=== PATIENT | male | born 1970 | race Caucasian/White ===

== ENCOUNTER 2021-01-21 15:15 | Outpatient (CLI) | payer BC, SELFPAY | END 2021-01-21 15:16 | disposition home or self-care (01) | LOC: ANHCOVIDVC 15:15 | PROVIDERS: PCP Family Medicine | DX: Z23 Encounter for immunization (principal) | CPT/HCPCS: 0001A; 91300 ==

== ENCOUNTER 2021-02-11 15:13 | Outpatient (CLI) | payer BC, SELFPAY | END 2021-02-11 15:14 | disposition home or self-care (01) | LOC: ANHCOVIDVC 15:13 | PROVIDERS: PCP Family Medicine | DX: Z23 Encounter for immunization (principal) | CPT/HCPCS: 0002A; 91300 ==

== ENCOUNTER 2022-09-16 00:36 | Day surgery (SDC) | payer BC, SELFPAY ==
[2022-09-12 10:13] VITALS: BMI 25.4
[2022-09-16 09:41] VITALS: BP 136/97; PULSE 67; RESP 18; TEMP 36.2; O2SAT 100; BMI 25.9
[2022-09-16] MEDS: LACTATED RINGERS 1,000 ML 150 ML IV CONT (09:50)
--- NOTE | 2022-09-16 10:07 | P.PNAN_ITS ---
Anes - Initial Pre Proc Eval Procedure: Operation Date: 09/16/22 10:30 Proposed Procedures p Screening Colonoscopy - Cornell Meneses MD Date/Time: 09/16/22 10:07 Surgeon: Cornell Meneses MD Pre Op Diagnosis: neoplasm screening Patient Data Age: 52 Gender: M Height: 1.93 m Weight: 96.7 kg Last Vital Signs Temp 97.2 F L 09/16/22 09:41 Pulse 67 09/16/22 09:41 Resp 18 09/16/22 09:41 BP 136/97 H 09/16/22 09:41 Pulse Ox 100 09/16/22 09:41 O2 Del Method Room Air 09/16/22 09:41 Allergies Allergy/AdvReac Type Severity Reaction Status Date / Time azithromycin Allergy Mild Rash Verified 09/12/22 10:38 Penicillins Allergy Mild Rash Verified 09/12/22 10:38 Home Medications Medication Instructions Recorded Confirmed Type sodium,potassium,mag sulfates 17.5 See Rx Instructions PO .COMPLEX 08/02/22 Rx gram-3.13 gram-1.6 gram oral soln #354 mL (Suprep Bowel Prep Kit) Patient hx anesthesia problems: none Family hx anesthesia problems: none Results Review: All pre-operative results and documents have been reviewed as part of the pre- operative evaluation. [facility] Past Medical History Medical History (Updated 09/12/22 @ 11:20 by Bijan Hazel MD) Retinal tear of right eye Social History Social History (Updated 09/12/22 @ 10:40 by Anay Frederick MA) Smoking status: Never smoker Alcohol intake: current Drinks per week: 14 Lack of Transportation: No Lack of Food: Never True Current Housing: I Have Housing Concerned About Future Housing: No Difficulty Paying Gas/Electric Bills: No Difficulty Paying for Meds: No Currently Unemployed: No Education: Master's Degree or Higher Difficulty w/ Childcare or Family Care: No Spiritual care concerns: No Anes - Eval Final PreProcedure Day of Procedure 09/16/22 10:07 Patient weight: normal Heart: regular rate and rhythm Lungs: clear to auscultation Airway: Mallampati scale class II Neurological: alert and oriented Last oral intake: >/= 8 hours ASA classification: I Emergent: no Anesthetic plan: proceed Anesthesia type and monitoring: general GIVS and standard monitoring Results Review: All pre-operative results and documents have been reviewed as part of the pre- operative evaluation. Informed Consent: The patient's anesthetic plan and its attendant risks and benefits were discussed with the patient/family/POA. Questions were solicited and answers provided to the satisfaction of the patient/family/POA.
--- NOTE | 2022-09-16 10:12 | P.HP_ITS ---
History of Present Illness History of Present Illness Consent: Risks, benefits, and alternatives have been discussed and questions answered. Patient agrees to proceed with procedure. Chief complaint: neoplasm screening Narrative: Lito Ochoa is a 52 year old male Presents for screening colonoscopy. Patient's current weight appetite and bowel movements are normal. Patient denies abdominal pain. He has had no bleeding. Family history is noncontribut ory. Review of Systems Review of Systems: Review of systems noncontributory. [facility] Past Medical History Medical History (Updated 09/12/22 @ 11:20 by Bijan Hazel MD) Retinal tear of right eye Social History Social History (Updated 09/12/22 @ 10:40 by Anay Frederick MA) Smoking status: Never smoker Alcohol intake: current Drinks per week: 14 Lack of Transportation: No Lack of Food: Never True Current Housing: I Have Housing Concerned About Future Housing: No Difficulty Paying Gas/Electric Bills: No Difficulty Paying for Meds: No Currently Unemployed: No Education: Master's Degree or Higher Difficulty w/ Childcare or Family Care: No Spiritual care concerns: No Meds Home Medications and Allergies Home Medications Medication Instructions Recorded Confirmed Type sodium,potassium,mag sulfates 17.5 See Rx Instructions PO .COMPLEX 08/02/22 Rx gram-3.13 gram-1.6 gram oral soln #354 mL (Suprep Bowel Prep Kit) Allergies Allergy/AdvReac Type Severity Reaction Status Date / Time azithromycin Allergy Mild Rash Verified 09/12/22 10:38 Penicillins Allergy Mild Rash Verified 09/12/22 10:38 Vital Signs Vital Signs - 24 hr 09/16/22 09:41 Temperature 97.2 F L Pulse Rate 67 Respiratory Rate 18 Blood Pressure 136/97 H Pulse Oximetry 100 Oxygen Delivery Room Air Exam Narrative: Physical exam reveals patient to be alert. Vital signs stable. HEENT exam is unremarkable. Patient is anicteric. Lungs are clear to auscultation and percussion. Heart is without murmur or extra sounds. Abdomen bowel sounds present soft nontender with no organomegaly. Digital external rectal exam is normal. Assessment and Plan Assessment and plan (1) Colon cancer screening: Code(s): Z12.11 - Encounter for screening for malignant neoplasm of colon Status: Acute Assessment and Plan: Patient presents today for screening colonoscopy. He appears to be at average risk for colon polyps. Further recommendations may be given after endoscopy.
[2022-09-16 10:46] VITALS: BP 117/82; PULSE 70; RESP 18; O2SAT 100
[2022-09-16 10:56] VITALS: BP 111/76; PULSE 72; RESP 18; O2SAT 100
[2022-09-16 11:06] VITALS: BP 133/98; PULSE 58; RESP 18; O2SAT 100
== END 2022-09-16 11:13 | disposition home or self-care (01) ==
PROVIDERS: PCP Family Medicine; Visit Provider Internal Medicine Gastroenterology
PROC: 0DJD8ZZ Inspection of Lower Intestinal Tract, Via Natural or Artificial Opening Endoscopic (ICD-10-PCS; CPT 45378; principal; 2022-09-16 10:30)
DX: Z12.11 Encounter for screening for malignant neoplasm of colon (principal); K64.8 Other hemorrhoids
CPT/HCPCS: 45378; J2704; J7120

== ENCOUNTER 2025-03-06 15:13 | Observation (INO) | payer BC, SELFPAY ==
[2025-03-06] VITALS (29 sets, daily range): BP systolic 134–181; BP diastolic 92–102; PULSE 57–74; RESP 13–21; O2SAT 96–100
--- NOTE | ~2025-03-06 | CT_ITS ---
CTA brain carotid Ordering provider: Minh Caballero MD History: . posterior circ stroke symptoms . Comparison: None. Technique: CT angiogram head and neck was performed following timed intravenous injection of contrast . Thin slice axial images and reformatted coronal images were obtained. Three dimensional reformatted images of the brain were also obtained using a [employer] workstation. Radiation reduction technique ut ilized.The dose-length product was 1251.14 mGy-cm. 100 ML Omnipaque 350 was given IV. FINDINGS: HEAD: --ANTERIOR AND MIDDLE CEREBRAL ARTERIES AND BRANCHES: Normal caliber and contour. --INTERNAL CAROTID ARTERIES: Mild atheromatous disease but no significant stenosis. No occlusion. --BASILAR ARTERY AND BRANCHES: Normal caliber and contour. No atheromatous disease. --POSTERIOR CEREBRAL ARTERIES: Normal caliber and contour --POSTERIOR COMMUNICATING ARTERIES: Not visualized which is probably related to congenital absence or small size. --ANEURYSM: None visualized. --BRAIN: Please refer to report of CT head performed the same day. --BONES AND SUPERFICIAL SOFT TISSUES: Please refer to report of CT head performed the same day. --PARANASAL SINUSES AND MASTOIDS: Please refer to report of CT head done the same day. NECK: --RIGHT CERVICAL CAROTID SYSTEM: Normal caliber and contour. Percent stenosis per NASCET criteria is 0%. No carotid dissection. Otherwise, no significant atheromatous disease or stenosis of the cervica l carotid system. --LEFT CERVICAL CAROTID SYSTEM: Normal caliber and contour. Percent stenosis per NASCET criteria is 0%. No carotid dissection. Otherwise, no significant atheromatous disease or stenosis of the cervical carotid system. --VERTEBRAL ARTERIES: Normal caliber and contour. --VISUALIZED AORTIC ARCH AND BRANCHING VESSELS: no significant stenosis. --SOFT TISSUES: Normal. --CERVICAL SPINE: Normal. IMPRESSION: 1. Normal CTA head and neck. Percent stenosis per NASCET criteria is 0%. Reviewed, dictated and finalized at location A.
--- NOTE | ~2025-03-06 | MR_ITS ---
EXAMINATION: MR brain/brain stem wo/w con DATE: 03/07/2025 11:21 INDICATION: Transient ischemic episode presenting with aphasia and loss of coordination TECHNIQUE: Magnetic resonance imaging (MRI) of the brain and brainstem was performed without and with 19 mL Multihance intravenous contrast. Sequences included sagittal and axial T1-weighted SE, axial d iffusion-weighted FS SE, axial 3D SWAN, axial T2-weighted FLAIR, and axial T2-weighted FSE. Postcontr ast axial and coronal T1-weighted SE was obtained. Apparent diffusion coefficient (ADC) maps were cre ated. COMPARISON: CT and CT angiogram dated 03/06/2025 FINDINGS: Restricted diffusion and increased to the surgical in the posterior aspect of the left lentiform nucl eus extending across the genu of the left internal capsule. No intracranial hemorrhage or abnormal in tracranial mass lesion. There are no intraparenchymal signal abnormalities seen on the other pulse s equences. The ventricles are symmetric and normal in size. There are no abnormal extra-axial fluid co llections. Flow voids are seen in the cerebral arteries on the T2-weighted sequences consistent with their expected patency. Visualized orbits and soft tissues are unremarkable. Mild mucoperiosteal thic kening the bilateral ethmoid sinuses. There are no areas of abnormal enhancement on the post contrast images. IMPRESSION: 1. Acute infarct in the left basal ganglia. Reviewed, dictated and finalized at location A.
--- NOTE | ~2025-03-06 | CT_ITS ---
EXAMINATION: CT brain wo con DATE: 03/06/2025 16:31 INDICATION: Confusion TECHNIQUE: Computed tomography (CT) of the head was performed without intravenous contrast. Sagittal and coronal reconstructions were performed. The mA was adjusted according to patient size. Iterative reconstruction technique was employed. The dose-length product was 756.67 mGy-cm. COMPARISON: None FINDINGS: No acute intracranial hemorrhage, acute infarction or abnormal extra axial fluid collection. Ventricl es are normal and symmetric. No mass/mass effect. The orbits, paranasal sinuses and mastoid air cells are normal. IMPRESSION: 1. Normal head CT. Reviewed, dictated and finalized at location A. IMPRESSION: 1. Normal head CT.
--- NOTE | 2025-03-06 15:49 | ED_ITS ---
HPI - General Adult General Chief complaint: Unspecified <Muna Lange PA-C - Last Filed: 03/07/25 10:58> Stated complaint: confusion, HTN since last night <Muna Lange PA-C - Last Filed: 03/07/25 10:58> Time Seen by Provider: 03/06/25 15:49 <Muna Lange PA-C - Last Filed: 03/07/25 10:58> Focused HPI: This is a 54 year old male that presents to the ER for confusion. Ongoing since last night. Reports he feels uncoordinated, like he is drunk. GENERAL: Well-appearing, well-nourished, and in no acute distress. HEAD: Normocephalic, atraumatic. CHEST: Clear to auscultation. ?No respiratory distress. HEART: Regular rate and rhythm.? NEURO: ?Alert and oriented x3. Patient screened in triage and initial orders placed.? ?Additional care and disposition to be based upon?diagnostic testing and treatment. <Muna Lange PA-C - Last Filed: 03/07/25 10:58> History of Present Illness HPI narrative: Agree with the HPI above last known well of 6:30 p.m. last night. Patient has no history of any medical conditions aside from vital detachment. Does not take any prescription medications. Patient was found to be hypertensive at home, confused, in coordinated, having word-finding difficulties, having difficulty typing and slurring of his speech. Size primary doctor today was referred to the emergency department for stroke evaluation. <Minh Caballero MD - Last Filed: 03/07/25 07:04> Related Data Home medications: Home Medications ?Medication ?Instructions ?Recorded ?Confirmed ?Last Taken ?Type No Home Medications 08/12/24 03/07/25 Unknown History <Muna Lange PA-C - Last Filed: 03/07/25 10:58> Allergies/adverse reactions: Allergies Allergy/AdvReac Type Severity Reaction Status Date / Time azithromycin Allergy Mild Rash Verified 03/07/25 02:53 Penicillins Allergy Mild Rash Verified 03/07/25 02:53 <Muna Lange PA-C - Last Filed: 03/07/25 10:58> Review of Systems 2 Review of Systems: As reviewed above in HPI <Minh Caballero MD - Last Filed: 03/07/25 07:04> [facility] Past Medical History Medical History: Medical History Retinal tear of right eye <Muna Lange PA-C - Last Filed: 03/07/25 10:58> Social History Social History: Social History Smoking status: Never smoker Alcohol intake: current Drinks per week: 10 Substance use: never Substance use type: does not use Do You Feel Safe in your Home?: Yes Lack of Transportation: No Lack of Food: Never True Current Housing: I Have Housing Concerned About Future Housing: No Difficulty Paying Gas/Electric Bills: No Difficulty Paying for Meds: No Currently Unemployed: No Education: Master's Degree or Higher Difficulty w/ Childcare or Family Care: No Spiritual care concerns: No <Muan Lange PA-C - Last Filed: 03/07/25 10:58> Exam 2 Narrative: GENERAL: [Well-appearing, well-nourished, and in no acute distress.] HEAD: [Normocephalic, atraumatic.] EYES: [PERRLA and EOMI.] ENT: Nares clear, no rhinorrhea or epistaxis. Mucous membranes moist. NECK: Supple. CHEST: [Clear to auscultation. No respiratory distress.] HEART: [Regular rate and rhythm]. No murmur heard. [Normal peripheral pulses.] ABDOMEN: [Soft, nondistended], [nontender], [No rigidity or guarding] EXTREMITIES: Normal range of motion. [No edema.] SKIN: Warm, dry, no rash. NEURO: Word-finding difficulties and subjective incoordination and feeling drunk but no for facial asymmetry, no strength asymmetry, no sensation asymmetry. Extinction is normal. Answering all questions appropriately. Full strength and sensation throughout both arms and legs. Ambulatory without any ataxic gait. PSYCH: [Normal mood and affect.] <Minh Caballero MD - Last Filed: 03/07/25 07:04> Course Vital Signs Vital signs: Vital Signs Pulse Rate 70 03/06/25 15:48 Respiratory Rate 20 03/06/25 15:48 Blood Pressure 161/92 H 03/06/25 15:48 Pulse Oximetry 100 03/06/25 15:48 Oxygen Delivery Room Air 03/06/25 15:48 Temperature 98.2 F 03/07/25 06:00 Pulse Rate 65 03/07/25 06:00 Respiratory Rate 20 03/07/25 06:00 Blood Pressure 119/75 03/07/25 06:00 Pulse Oximetry 100 03/07/25 06:00 Oxygen Delivery Room Air 03/07/25 08:00 <Muna Lange PA-C - Last Filed: 03/07/25 10:58> Vital Signs Pulse Rate 70 03/06/25 15:48 Respiratory Rate 20 03/06/25 15:48 Blood Pressure 161/92 H 03/06/25 15:48 Pulse Oximetry 100 03/06/25 15:48 Oxygen Delivery Room Air 03/06/25 15:48 Temperature 98.2 F 03/07/25 06:00 Pulse Rate 65 03/07/25 06:00 Respiratory Rate 20 03/07/25 06:00 Blood Pressure 119/75 03/07/25 06:00 Pulse Oximetry 100 03/07/25 06:00 Oxygen Delivery Room Air 03/07/25 08:00 <Minh Caballero MD - Last Filed: 03/07/25 07:04> Medical Decision Making MDM Narrative Medical decision making narrative: 54-year-old male presenting to the emergency department with signs and symptoms of posterior circulation impairment versus hemorrhagic stroke versus encephalitis versus pres syndrome. Patient was last known well at 6:30 p.m. yesterday when he suddenly had the sensation that he was drunk and intoxicated having word-finding difficulties, slurring of his speech, inability to express words and type words although he recognize the words were incorrect. He was confused all the sudden and they took his blood pressure at home and was elevated in the 180s region. He has no history of hypertension does not take any blood pressure medications. Patient is not any medications at this time. No history of strokes, CVA, neck injury or concussions. He went to his primary doctor today and was referred to the emergency department for evaluation of his neurological complaints. On my assessment patient states he feels much better at this time but not completely back to normal and still feels like he is drunk even though he is sitting still. His blood pressure did rise in triage to 181/98 but on my 2nd assessment was down to 145 systolic without any interventions. His neurological examination has no focal findings aside from his subjective incoordination although he has no ataxia or nystagmus. Negative Romberg test. Symptoms consistent with TIA versus posterior circulation impairment versus encephalitis. He is afebrile but is complaining of a headache neck pain at this time. CT head and CT angiography of the head neck was ordered. He is over 24 hours outside the window for any interventions such as thrombolytics or thrombectomy at the time of my initial assessment of the patient given delay in presenting to the ER from symptom onset. Cardiac workup was ordered. EKG chest x-ray CBC CMP lipase and troponin ordered. Patient will be admitted for MRI and neurological evaluation after completion of workup. CT head and CT angiography of the head neck showed no acute process. Spoke to Dr. Ledesma from Neurology at [facility] who gave me detailed recommendations on patient's plan of care and does not think patient needs transfer to a higher level of care center at this time and workup can be completed inpatient here at [facility]. Recommendations from neurology Dr. Ledesma are as follows: Full-dose aspirin 325 mg q.d, 80 mg atorvastatin q.d., A1c panel, lipid panel, echocardiogram, MRI with and without contrast of brain and brainstem. Permissive hypertension for 48 hours including only treating hypertension greater than 180 systolic/110 diastolic with agents such as IV labetalol p.r.n. if patient remains hypertensive upon discharge recommendations are for discharge with lisinopril daily. Outpatient follow-up after completion of stroke workup and MRI in patient with [facility] Neurology outpatient follow up. Clinic # [phone] Discussed the case with the hospitalist Dr. Albright who was agreeable to a telemetry monitored bed admission under the present circumstances. <Minh Caballero MD - Last Filed: 03/07/25 07:04> Medical Records Medical records reviewed: Yes I reviewed the external patient's medical records. <Minh Caballero MD - Last Filed: 03/07/25 07:04> Vital Signs Vital Signs: Vital Signs Pulse Rate 70 03/06/25 15:48 Respiratory Rate 20 03/06/25 15:48 Blood Pressure 161/92 H 03/06/25 15:48 Pulse Oximetry 100 03/06/25 15:48 Oxygen Delivery Room Air 03/06/25 15:48 Temperature 98.2 F 03/07/25 06:00 Pulse Rate 65 03/07/25 06:00 Respiratory Rate 20 03/07/25 06:00 Blood Pressure 119/75 03/07/25 06:00 Pulse Oximetry 100 03/07/25 06:00 Oxygen Delivery Room Air 03/07/25 08:00 <Muna Lange PA-C - Last Filed: 03/07/25 10:58> Vital Signs Pulse Rate 70 03/06/25 15:48 Respiratory Rate 20 03/06/25 15:48 Blood Pressure 161/92 H 03/06/25 15:48 Pulse Oximetry 100 03/06/25 15:48 Oxygen Delivery Room Air 03/06/25 15:48 Temperature 98.2 F 03/07/25 06:00 Pulse Rate 65 03/07/25 06:00 Respiratory Rate 20 03/07/25 06:00 Blood Pressure 119/75 03/07/25 06:00 Pulse Oximetry 100 03/07/25 06:00 Oxygen Delivery Room Air 03/07/25 08:00 <Minh Caballero MD - Last Filed: 03/07/25 07:04> Lab Data Lab results reviewed: Yes I reviewed the patient's lab results. <Minh Caballero MD - Last Filed: 03/07/25 07:04> Result diagrams: 03/06/25 17:10 03/06/25 17:11 <Muna Lange PA-C - Last Filed: 03/07/25 10:58> Labs: Lab Results 03/06/25 03/06/25 03/06/25 Range/Units 15:51 15:57 17:10 WBC 8.6 (4.5-10.0) K/mm3 RBC 5.02 (4.6-6.20) M/mm3 Hgb 15.1 (14.0-18.0) g/dL Hct 46.3 (42.0-52.0) % MCV 92.2 (80-100) fl MCH 30.1 (26-34) pg MCHC 32.6 (32-36) g/dl RDW 12.8 (11.5-14.5) % Plt Count 211 (150-375) k/mm3 MPV 11.1 H (7.4-10.4) fl Immature Gran % (Auto) 0.2 (0-0.5) % Neut % (Auto) 73.1 (45.5-73.1) % Lymph % (Auto) 19.4 (18.3-44.2) % [place] % (Auto) 6.7 (2.6-8.5) % Eos % (Auto) 0.3 (0-4.4) % Baso % (Auto) 0.3 (0.2-1.2) % Lymph # (Auto) 1.67 (0.9-3.2) K/mm3 [place] # (Auto) 0.6 (0.1-0.6) K/mm3 Eos # (Auto) 0.0 (0-0.3) K/mm3 Baso # (Auto) 0.0 (0.0-0.1) K/mm3 Abs Immat Gran (auto) 0.02 (0.00-0.031) K/mm3 Absolute Neuts (auto) 6.3 (1.3-6.7) K/mm3 Absolute Nucleated RBC 0.000 (0.0-0.012) K/mm3 Nucleated RBC % 0.0 (0.0-0.2) % PT (11.1-14.7) Seconds INR APTT (22.3-36.8) Seconds Sodium (137-145) mmol/L Potassium (3.4-5.0) mmol/L Chloride (98-107) mmol/L Carbon Dioxide (22-30) mmol/L Anion Gap (4-12) mmol/L BUN (9-20) mg/dL Creatinine (0.7-1.3) mg/dL Estim Creat Clear Calc ml/min Estimated GFR (59 - ) Glucose (65-110) mg/dL POC Capillary Glucose 88 (65-105) mg/dl Hemoglobin A1c 5.1 (<5.7) % Calcium (8.4-10.2) mg/dL Total Bilirubin (0.2-1.3) mg/dL AST (17-59) U/L ALT (6-50) U/L Alkaline Phosphatase (38-126) U/L Troponin I (0.000-0.034) ng/mL Total Protein (6.3-8.2) g/dL Albumin (3.5-5.1) g/dL Triglycerides (<150) mg/dL Cholesterol (0-200) mg/dL LDL Cholesterol Direct mg/dL HDL Direct mg/dL Urine Color Yellow (Yellow) Urine Appearance Clear (Clear) Urine pH 5.0 (5.0-9.0) Ur Specific [place] 1.024 (1.001-1.035) Urine Protein Trace (Negative) mg/dL Urine Glucose (UA) Negative (Negative) mg/dL Urine Ketones 3+ H (Negative) mg/dL Ur Blood (Man) Negative (Negative) Urine Nitrate Negative (Negative) Urine Bilirubin Negative (Negative) Urine Urobilinogen 1.0 (<2.0) mg/dL Leukocyte Esterase Rfl Negative (Negative) ERIKA/UL Urine RBC 0-2 (0-2) /hpf Urine WBC 0-5 (0-3) /hpf Ur Squamous Epith Cells None seen (Few) /hpf Urine Bacteria None seen /hpf Urine Casts 0-2 Urine Opiates Screen Negative (Negative) Urine Methadone Screen Negative (Negative) Ur Barbiturates Screen Negative (Negative) Ur Phencyclidine Scrn Negative (Negative) Ur Amphetamine Screen Negative (Negative) U Benzodiazepines Scrn Negative (Negative) Urine Cocaine Screen Negative (Negative) U Cannabinoids Screen Negative (Negative) Ethyl Alcohol (<10) mg/dL 03/06/25 Range/Units 17:11 WBC (4.5-10.0) K/mm3 RBC (4.6-6.20) M/mm3 Hgb (14.0-18.0) g/dL Hct (42.0-52.0) % MCV (80-100) fl MCH (26-34) pg MCHC (32-36) g/dl RDW (11.5-14.5) % Plt Count (150-375) k/mm3 MPV (7.4-10.4) fl Immature Gran % (Auto) (0-0.5) % Neut % (Auto) (45.5-73.1) % Lymph % (Auto) (18.3-44.2) % [place] % (Auto) (2.6-8.5) % Eos % (Auto) (0-4.4) % Baso % (Auto) (0.2-1.2) % Lymph # (Auto) (0.9-3.2) K/mm3 [place] # (Auto) (0.1-0.6) K/mm3 Eos # (Auto) (0-0.3) K/mm3 Baso # (Auto) (0.0-0.1) K/mm3 Abs Immat Gran (auto) (0.00-0.031) K/mm3 Absolute Neuts (auto) (1.3-6.7) K/mm3 Absolute Nucleated RBC (0.0-0.012) K/mm3 Nucleated RBC % (0.0-0.2) % PT 13.4 (11.1-14.7) Seconds INR 1.0 APTT 26.9 (22.3-36.8) Seconds Sodium 139 (137-145) mmol/L Potassium 3.9 (3.4-5.0) mmol/L Chloride 104 (98-107) mmol/L Carbon Dioxide 25 (22-30) mmol/L Anion Gap 10 (4-12) mmol/L BUN 15 (9-20) mg/dL Creatinine 0.94 (0.7-1.3) mg/dL Estim Creat Clear Calc 96 ml/min Estimated GFR > 60 (59 - ) Glucose 96 (65-110) mg/dL POC Capillary Glucose (65-105) mg/dl Hemoglobin A1c (<5.7) % Calcium 9.8 (8.4-10.2) mg/dL Total Bilirubin 0.9 (0.2-1.3) mg/dL AST 30 (17-59) U/L ALT 20 (6-50) U/L Alkaline Phosphatase 67 (38-126) U/L Troponin I < 0.012 (0.000-0.034) ng/mL Total Protein 8.0 (6.3-8.2) g/dL Albumin 4.8 (3.5-5.1) g/dL Triglycerides 55 (<150) mg/dL Cholesterol 241 H (0-200) mg/dL LDL Cholesterol Direct 115 mg/dL HDL Direct 95 mg/dL Urine Color (Yellow) Urine Appearance (Clear) Urine pH (5.0-9.0) Ur Specific [place] (1.001-1.035) Urine Protein (Negative) mg/dL Urine Glucose (UA) (Negative) mg/dL Urine Ketones (Negative) mg/dL Ur Blood (Man) (Negative) Urine Nitrate (Negative) Urine Bilirubin (Negative) Urine Urobilinogen (<2.0) mg/dL Leukocyte Esterase Rfl (Negative) ERIKA/UL Urine RBC (0-2) /hpf Urine WBC (0-3) /hpf Ur Squamous Epith Cells (Few) /hpf Urine Bacteria /hpf Urine Casts Urine Opiates Screen (Negative) Urine Methadone Screen (Negative) Ur Barbiturates Screen (Negative) Ur Phencyclidine Scrn (Negative) Ur Amphetamine Screen (Negative) U Benzodiazepines Scrn (Negative) Urine Cocaine Screen (Negative) U Cannabinoids Screen (Negative) Ethyl Alcohol < 10 (<10) mg/dL <Muna Lange PA-C - Last Filed: 03/07/25 10:58> Lab Results 03/06/25 03/06/25 03/06/25 Range/Units 15:51 15:57 17:10 WBC 8.6 (4.5-10.0) K/mm3 RBC 5.02 (4.6-6.20) M/mm3 Hgb 15.1 (14.0-18.0) g/dL Hct 46.3 (42.0-52.0) % MCV 92.2 (80-100) fl MCH 30.1 (26-34) pg MCHC 32.6 (32-36) g/dl RDW 12.8 (11.5-14.5) % Plt Count 211 (150-375) k/mm3 MPV 11.1 H (7.4-10.4) fl Immature Gran % (Auto) 0.2 (0-0.5) % Neut % (Auto) 73.1 (45.5-73.1) % Lymph % (Auto) 19.4 (18.3-44.2) % [place] % (Auto) 6.7 (2.6-8.5) % Eos % (Auto) 0.3 (0-4.4) % Baso % (Auto) 0.3 (0.2-1.2) % Lymph # (Auto) 1.67 (0.9-3.2) K/mm3 [place] # (Auto) 0.6 (0.1-0.6) K/mm3 Eos # (Auto) 0.0 (0-0.3) K/mm3 Baso # (Auto) 0.0 (0.0-0.1) K/mm3 Abs Immat Gran (auto) 0.02 (0.00-0.031) K/mm3 Absolute Neuts (auto) 6.3 (1.3-6.7) K/mm3 Absolute Nucleated RBC 0.000 (0.0-0.012) K/mm3 Nucleated RBC % 0.0 (0.0-0.2) % PT (11.1-14.7) Seconds INR APTT (22.3-36.8) Seconds Sodium (137-145) mmol/L Potassium (3.4-5.0) mmol/L Chloride (98-107) mmol/L Carbon Dioxide (22-30) mmol/L Anion Gap (4-12) mmol/L BUN (9-20) mg/dL Creatinine (0.7-1.3) mg/dL Estim Creat Clear Calc ml/min Estimated GFR (59 - ) Glucose (65-110) mg/dL POC Capillary Glucose 88 (65-105) mg/dl Hemoglobin A1c 5.1 (<5.7) % Calcium (8.4-10.2) mg/dL Total Bilirubin (0.2-1.3) mg/dL AST (17-59) U/L ALT (6-50) U/L Alkaline Phosphatase (38-126) U/L Troponin I (0.000-0.034) ng/mL Total Protein (6.3-8.2) g/dL Albumin (3.5-5.1) g/dL Triglycerides (<150) mg/dL Cholesterol (0-200) mg/dL LDL Cholesterol Direct mg/dL HDL Direct mg/dL Urine Color Yellow (Yellow) Urine Appearance Clear (Clear) Urine pH 5.0 (5.0-9.0) Ur Specific [place] 1.024 (1.001-1.035) Urine Protein Trace (Negative) mg/dL Urine Glucose (UA) Negative (Negative) mg/dL Urine Ketones 3+ H (Negative) mg/dL Ur Blood (Man) Negative (Negative) Urine Nitrate Negative (Negative) Urine Bilirubin Negative (Negative) Urine Urobilinogen 1.0 (<2.0) mg/dL Leukocyte Esterase Rfl Negative (Negative) ERIKA/UL Urine RBC 0-2 (0-2) /hpf Urine WBC 0-5 (0-3) /hpf Ur Squamous Epith Cells None seen (Few) /hpf Urine Bacteria None seen /hpf Urine Casts 0-2 Urine Opiates Screen Negative (Negative) Urine Methadone Screen Negative (Negative) Ur Barbiturates Screen Negative (Negative) Ur Phencyclidine Scrn Negative (Negative) Ur Amphetamine Screen Negative (Negative) U Benzodiazepines Scrn Negative (Negative) Urine Cocaine Screen Negative (Negative) U Cannabinoids Screen Negative (Negative) Ethyl Alcohol (<10) mg/dL 03/06/25 Range/Units 17:11 WBC (4.5-10.0) K/mm3 RBC (4.6-6.20) M/mm3 Hgb (14.0-18.0) g/dL Hct (42.0-52.0) % MCV (80-100) fl MCH (26-34) pg MCHC (32-36) g/dl RDW (11.5-14.5) % Plt Count (150-375) k/mm3 MPV (7.4-10.4) fl Immature Gran % (Auto) (0-0.5) % Neut % (Auto) (45.5-73.1) % Lymph % (Auto) (18.3-44.2) % [place] % (Auto) (2.6-8.5) % Eos % (Auto) (0-4.4) % Baso % (Auto) (0.2-1.2) % Lymph # (Auto) (0.9-3.2) K/mm3 [place] # (Auto) (0.1-0.6) K/mm3 Eos # (Auto) (0-0.3) K/mm3 Baso # (Auto) (0.0-0.1) K/mm3 Abs Immat Gran (auto) (0.00-0.031) K/mm3 Absolute Neuts (auto) (1.3-6.7) K/mm3 Absolute Nucleated RBC (0.0-0.012) K/mm3 Nucleated RBC % (0.0-0.2) % PT 13.4 (11.1-14.7) Seconds INR 1.0 APTT 26.9 (22.3-36.8) Seconds Sodium 139 (137-145) mmol/L Potassium 3.9 (3.4-5.0) mmol/L Chloride 104 (98-107) mmol/L Carbon Dioxide 25 (22-30) mmol/L Anion Gap 10 (4-12) mmol/L BUN 15 (9-20) mg/dL Creatinine 0.94 (0.7-1.3) mg/dL Estim Creat Clear Calc 96 ml/min Estimated GFR > 60 (59 - ) Glucose 96 (65-110) mg/dL POC Capillary Glucose (65-105) mg/dl Hemoglobin A1c (<5.7) % Calcium 9.8 (8.4-10.2) mg/dL Total Bilirubin 0.9 (0.2-1.3) mg/dL AST 30 (17-59) U/L ALT 20 (6-50) U/L Alkaline Phosphatase 67 (38-126) U/L Troponin I < 0.012 (0.000-0.034) ng/mL Total Protein 8.0 (6.3-8.2) g/dL Albumin 4.8 (3.5-5.1) g/dL Triglycerides 55 (<150) mg/dL Cholesterol 241 H (0-200) mg/dL LDL Cholesterol Direct 115 mg/dL HDL Direct 95 mg/dL Urine Color (Yellow) Urine Appearance (Clear) Urine pH (5.0-9.0) Ur Specific [place] (1.001-1.035) Urine Protein (Negative) mg/dL Urine Glucose (UA) (Negative) mg/dL Urine Ketones (Negative) mg/dL Ur Blood (Man) (Negative) Urine Nitrate (Negative) Urine Bilirubin (Negative) Urine Urobilinogen (<2.0) mg/dL Leukocyte Esterase Rfl (Negative) ERIKA/UL Urine RBC (0-2) /hpf Urine WBC (0-3) /hpf Ur Squamous Epith Cells (Few) /hpf Urine Bacteria /hpf Urine Casts Urine Opiates Screen (Negative) Urine Methadone Screen (Negative) Ur Barbiturates Screen (Negative) Ur Phencyclidine Scrn (Negative) Ur Amphetamine Screen (Negative) U Benzodiazepines Scrn (Negative) Urine Cocaine Screen (Negative) U Cannabinoids Screen (Negative) Ethyl Alcohol < 10 (<10) mg/dL <Minh Caballero MD - Last Filed: 03/07/25 07:04> Imaging Data Attestation: I personally reviewed and interpreted this imaging study as follows: < Minh Caballero MD - Last Filed: 03/07/25 07:04> My impression: Impressions Head CT 03/06/25 16:41 IMPRESSION: 1. Normal head CT. Head/Neck CTA 03/06/25 21:43 IMPRESSION: 1. Normal CTA head and neck. Percent stenosis per NASCET criteria is 0%. <Minh Caballero MD - Last Filed: 03/07/25 07:04> Critical Care Time Critical Care Time Critical Care Time: Yes <Minh Caballero MD - Last Filed: 03/07/25 07:04> Total Critical Care Time: 35 <Minh Caballero MD - Last Filed: 03/07/25 07:04> Discharge Plan Discharge Clinical Impression: TIA (transient ischemic attack), Acute posterior circulation transient ischemic attack <Muna Lange PA-C - Last Filed: 03/07/25 10:58> Patient Disposition: Still a Patient <Muna Lange PA-C - Last Filed: 03/07/25 10:58> Condition: Stable <Muna Lange PA-C - Last Filed: 03/07/25 10:58>
--- NOTE | 2025-03-06 15:49 | ECG_ITS ---
Test Date: 2025-03-06 17:14:44 Measurements Intervals [place] Rate: 66 P: 85 IN: 199 QRS: 0 QRSD: 103 T: 30 QT: 370 QTc: 390 Interpretive Statements SINUS RHYTHM No previous ECG available for comparison Electronically Signed On 03-07-2025 11:09:47 CDT by Golden Colon M.D.
[2025-03-06 15:53] LABS: Glucose Point of Care 88 mg/dl (65-105)
[2025-03-06 16:11] LABS: Add Urine Microscopic? YES; Appearance Urine Clear (Clear); Bacteria Urine None Seen /hpf; Bilirubin Urine Negative (Negative); Blood Urine Negative (Negative); Color Urine Yellow (Yellow); Glucose Urine UA Negative (Negative); Ketones Urine 3+ mg/dL (Negative); Leukocyte Esterase Ur Negative LEU/UL (Negative); Nitrate Urine Negative (Negative); Non Pathogenic Casts 0-2; Protein Urine Trace mg/dL (Negative); RBC Urine 0-2 /hpf (0-2); Specific Grav Ur 1.024 (1.001-1.035); Squamous Epithelial Cell Urine None Seen /hpf (Few); WBC Urine 0-5 /hpf (0-3)
[2025-03-06 17:25] LABS: Basophils Percent Auto 0.3 % (0.2-1.2); Eosinophils Percent Auto 0.3 % (0-4.4); Hematocrit 46.3 % (42.0-52.0); Hemoglobin 15.1 g/dL (14.0-18.0); Immature Granulocyte Absolute 0.02 K/mm3 (0.00-0.031); Immature Granulocyte Percent A 0.2 % (0-0.5); Lymphocytes Absolute Auto 1.67 K/mm3 (0.9-3.2); Lymphocytes Percent Auto 19.4 % (18.3-44.2); Mean Corpuscular HGB Conc 32.6 g/dl (32-36); Mean Corpuscular Hemoglobin 30.1 pg (26-34); Mean Corpuscular Volume 92.2 fl (80-100); Mean Platelet Volume 11.1 fl (7.4-10.4); Monocytes Absolute Auto 0.6 K/mm3 (0.1-0.6); Monocytes Percent Auto 6.7 % (2.6-8.5); Neutrophils Absolute Auto 6.3 K/mm3 (1.3-6.7); Neutrophils Percent Auto 73.1 % (45.5-73.1); Platelet Count Result 211 k/mm3 (150-375); Red Blood Count 5.02 M/mm3 (4.6-6.20); Red Cell Distribution Width 12.8 % (11.5-14.5); White Blood Count 8.6 K/mm3 (4.5-10.0)
[2025-03-06 17:31] LABS: Alanine Aminotransferase 20 U/L (6-50); Albumin Level 4.8 g/dL (3.5-5.1); Alkaline Phosphatase 67 U/L (38-126); Anion Gap 10 mmol/L (4-12); Aspartate Amino Transferase 30 U/L (17-59); Bilirubin,Total 0.9 mg/dL (0.2-1.3); Blood Urea Nitrogen 15 mg/dL (9-20); Calcium 9.8 mg/dL (8.4-10.2); Carbon Dioxide 25 mmol/L (22-30); Chloride 104 mmol/L (98-107); Estimated CRCL calculation 96 ml/min; Estimated Glomerular Filt Rate > 60; Glucose 96 mg/dL (65-110); Potassium 3.9 mmol/L (3.4-5.0); Sodium 139 mmol/L (137-145)
[2025-03-06 17:36] LABS: Ethanol < 10 mg/dL (<10); Prothrombin Time 13.4 Seconds (11.1-14.7)
[2025-03-06 17:37] LABS: Partial Thromboplastin Time 26.9 Seconds (22.3-36.8)
[2025-03-06 17:56] LABS: Amphetamine Screen Urine Negative (Negative); Barbiturate Screen Urine Negative (Negative); Benzodiazepines Screen Urine Negative (Negative); Cannabinoid Screen Urine Negative (Negative); Cocaine Screen Urine Negative (Negative); Methadone Screen Urine Negative (Negative); Opiate Screen Urine Negative (Negative); Phencyclidine Screen Urine Negative (Negative)
[2025-03-06] MEDS: ASPIRIN 325 MG TABLET PO (21:10)
--- NOTE | 2025-03-06 21:46 | ECG_ITS ---
Test Date: 2025-03-06 21:49:09 Measurements Intervals [place] Rate: 64 P: 59 PA: 212 QRS: 0 QRSD: 110 T: 18 QT: 387 QTc: 402 Interpretive Statements SINUS RHYTHM WITH FIRST DEGREE AV BLOCK Compared to ECG 03/06/2025 17:14:44 NO SIGNIFICANT CHANGES Electronically Signed On 03-07-2025 15:04:09 CDT by Golden Colon M.D.
[2025-03-06 22:01] LABS: Troponin I < 0.012 ng/mL (0.000-0.034)
[2025-03-07] VITALS (13 sets, daily range): BP systolic 119–152; BP diastolic 75–102; PULSE 57–96; RESP 13–20; TEMP 36–36.8; O2SAT 97–100; BMI 25.7
[2025-03-07 00:51] LABS: Hemoglobin A1C 5.1 % (<5.7)
[2025-03-07 00:52] LABS: Cholesterol 241 mg/dL (0-200); HDL Direct 95 mg/dL; Triglycerides 55 mg/dL (<150)
[2025-03-07 01:03] LABS: LDL Cholesterol Direct 115 mg/dL
--- NOTE | 2025-03-07 02:55 | PC.NURSE ---
PATIENT ARRIVED ON 3 MEDSURG AT 0248
--- NOTE | 2025-03-07 04:13 | PM.IMHP ---
H&P: HPI History of Present Illness Date/Time: 03/07/25 04:13 Chief Complaint: Confusion Narrative: 54-year-old male presents to [facility] ER on 03/06/2025 with complaint of confusion. He for sought evaluation with his PCP Dr. Hazel as he felt out of sorts. After dinner on 03/05/2025 felt as if he was drawn, could not type, had slurred speech. Was found to have high blood pressure. Sent to [place] ER for further evaluation. Laboratory workup largely unremarkable. Pending lipid panel. Negative UA. Negative urine drug screen. CT head and CTA head and neck negative. On repeat evaluation in the ER the patient reported no symptoms. His participation in the exam was limited as he only wanted to sleep. However reported he was feeling much better. As detailed and ER physician's note neurology Dr. Ledesma at [facility] decline for patient to be transferred however gave detailed recommendations on plan of care. Review of Systems Constitutional: Constitutional: Reports as per [facility] Past Medical History Medical History Retinal tear of right eye Social History Social History Smoking status: Never smoker Alcohol intake: current Drinks per week: 10 Substance use: never Substance use type: does not use Do You Feel Safe in your Home?: Yes Lack of Transportation: No Lack of Food: Never True Current Housing: I Have Housing Concerned About Future Housing: No Difficulty Paying Gas/Electric Bills: No Difficulty Paying for Meds: No Currently Unemployed: No Education: Master's Degree or Higher Difficulty w/ Childcare or Family Care: No Spiritual care concerns: No Meds Home Medications and Allergies Home Medications ?Medication ?Instructions ?Recorded ?Confirmed ?Type No Home Medications 08/12/24 03/07/25 History Allergies Allergy/AdvReac Type Severity Reaction Status Date / Time azithromycin Allergy Mild Rash Verified 03/07/25 02:53 Penicillins Allergy Mild Rash Verified 03/07/25 02:53 Vital Signs Vital Signs - 24 hr 03/06/25 15:48 03/06/25 19:47 03/06/25 19:57 Temperature Pulse Rate 70 67 69 Respiratory Rate 20 16 17 Blood Pressure 161/92 H 181/98 H Pulse Oximetry 100 100 100 Oxygen Delivery Room Air 03/06/25 20:00 03/06/25 20:01 03/06/25 20:15 Temperature Pulse Rate 70 65 66 Respiratory Rate 21 H 17 16 Blood Pressure 172/100 H Pulse Oximetry 100 100 98 Oxygen Delivery 03/06/25 20:16 03/06/25 20:30 03/06/25 20:31 Temperature Pulse Rate 63 68 65 Respiratory Rate 15 19 15 Blood Pressure 145/99 H 159/98 H Pulse Oximetry 99 100 98 Oxygen Delivery 03/06/25 20:45 03/06/25 20:46 03/06/25 21:00 Temperature Pulse Rate 65 63 67 Respiratory Rate 16 15 16 Blood Pressure 153/94 H Pulse Oximetry 98 98 98 Oxygen Delivery 03/06/25 21:01 03/06/25 21:15 03/06/25 21:32 Temperature Pulse Rate 66 63 Respiratory Rate 18 16 Blood Pressure 134/101 H Pulse Oximetry 98 100 Oxygen Delivery 03/06/25 21:34 03/06/25 21:45 03/06/25 22:00 Temperature Pulse Rate 64 69 71 Respiratory Rate 14 17 15 Blood Pressure 166/95 H Pulse Oximetry 100 100 96 Oxygen Delivery 03/06/25 22:01 03/06/25 22:15 03/06/25 22:16 Temperature Pulse Rate 72 67 74 Respiratory Rate 17 17 19 Blood Pressure 147/96 H 147/92 H Pulse Oximetry 97 96 97 Oxygen Delivery 03/06/25 22:30 03/06/25 22:31 03/06/25 22:45 Temperature Pulse Rate 59 L 57 L 60 Respiratory Rate 16 14 13 Blood Pressure 144/97 H Pulse Oximetry 96 96 97 Oxygen Delivery 03/06/25 23:00 03/06/25 23:01 03/06/25 23:15 Temperature Pulse Rate 64 68 71 Respiratory Rate 16 17 17 Blood Pressure 157/102 H Pulse Oximetry 100 100 100 Oxygen Delivery 03/06/25 23:30 03/06/25 23:45 03/07/25 00:00 Temperature Pulse Rate 64 73 67 Respiratory Rate 17 14 15 Blood Pressure Pulse Oximetry 100 100 97 Oxygen Delivery 03/07/25 00:15 03/07/25 00:30 03/07/25 00:45 Temperature Pulse Rate 59 L 57 L 58 L Respiratory Rate 13 14 16 Blood Pressure Pulse Oximetry 97 97 99 Oxygen Delivery 03/07/25 01:00 03/07/25 01:15 03/07/25 01:30 Temperature Pulse Rate 62 60 62 Respiratory Rate 18 18 15 Blood Pressure Pulse Oximetry 99 100 98 Oxygen Delivery 03/07/25 02:58 Temperature 98.1 F Pulse Rate 60 Respiratory Rate 18 Blood Pressure 147/102 H Pulse Oximetry 100 Oxygen Delivery Exam Const: General: comfortable and no acute distress HENMT: Mouth: Yes moist mucous membranes Eyes: Pupils: Equal, round and reactive pupils present Neck: Neck: supple Resp: Effort & Inspection: normal respiratory effort Auscultation: clear to auscultation bilaterally Cardio: Rate: regular rate Rhythm: regular rhythm GI: GI Palp: Yes Soft to palpation and No Tenderness to palpation present (GI) : General: Yes bladder normal to palpation Neuro: General: deep tendon reflexes 2+ bilaterally Speech: normal speech Motor exam (neuro): 5/5 motor strength present throughout Sensory Exam: normal sensation Extrem: General: no edema H&P: Results Labs Labs: Short CBC 03/06/25 Range/Units 17:10 WBC 8.6 (4.5-10.0) K/mm3 Hgb 15.1 (14.0-18.0) g/dL Hct 46.3 (42.0-52.0) % Plt Count 211 (150-375) k/mm3 BMP 03/06/25 17:11 Sodium 139 Potassium 3.9 Chloride 104 Carbon Dioxide 25 BUN 15 Creatinine 0.94 Glucose 96 Calcium 9.8 Cardiac Enzymes 03/06/25 Range/Units 17:11 Troponin I < 0.012 (0.000-0.034) ng/mL Liver Function 03/06/25 Range/Units 17:11 Total Bilirubin 0.9 (0.2-1.3) mg/dL AST 30 (17-59) U/L ALT 20 (6-50) U/L Alkaline Phosphatase 67 (38-126) U/L Albumin 4.8 (3.5-5.1) g/dL Urine 03/06/25 Range/Units 15:57 Urine Color Yellow (Yellow) Urine Appearance Clear (Clear) Urine pH 5.0 (5.0-9.0) Ur Specific [place] 1.024 (1.001-1.035) Urine Protein Trace (Negative) mg/dL Urine Glucose (UA) Negative (Negative) mg/dL Assessment and Plan Assessment and plan (1) TIA (transient ischemic attack): Code(s): G45.9 - Transient cerebral ischemic attack, unspecified Status: Acute Plan Continue full-dose aspirin 325 mg p.o. q.day. 80 mg atorvastatin q.day. pending A1c, lipid panel, echocardiogram, MRI with without contrast of brain and brainstem to assess for posterior circulation abnormalities. Permissive hypertension for 48 hours. Time of 1st event was around the evening of 03/05/2025. Outpatient follow-up after completion of stroke workup and MRI in patient with [facility] Neurology outpatient follow up. Clinic # [phone] Full code. SCDs. Hospitalist MIPS Advance Care Plan I have confirmed that the patient's Advanced Care Plan is present, code status is documented, or surrogate decision maker is listed in patient medical record.: Yes Medication Reconciliation I have utilized all available resources to obtain, update and review the patients current medications (includes all prescriptions, OTC, herbals, cannabis, and nutritional supplements).: Yes
--- NOTE | 2025-03-07 06:00 | ECHO_ITS ---
Patient Info Name: Lito Ochoa Age: 54 years : 1970 Gender: Male Ht: 76 in Wt: 211 lbs BSA: 2.27 m2 HR: 73 bpm BP: 119 / 75 mmHg Heart Rhythm: Sinus Rhythm Technical Quality: Good Exam Date: 03/07/2025 3:26 PM Patient Status: I Admit Date: 03/07/2025 Exam Type: CA echo doppler w bubble study Complete two-dimensional, color flow and Doppler transthoracic echocardiogram is performed with agitated saline. Staff Referring Physician: Alberto Rivera Boat Painter: Alanis Pino Attending Provider: Laurel Albright Contrast/Agitated Saline Contrast/Ag. Saline: Agitated Saline Amount: 20.00 ml Existing IV Access: Yes IV Access Condition: patent with no signs of infiltration Summary 1. Left ventricular chamber dimension is normal. 2. Left ventricular systolic function is normal, estimated at 60-65. 3. The left ventricular diastolic function is grade II diastolic dysfunction. 4. E/e' 6 is not elevated. 5. No pulmonary hypertension, estimated pulmonary arterial systolic pressure is 19 mmHg. 6. There is trace pulmonic regurgitation. Left Ventricle E/e' 6 is not elevated. Left ventricular chamber dimension is normal. Left ventricular systolic function is normal, estimated at 60-65. The left ventricular diastolic function is grade II diastolic dysfunction. Right Ventricle Right ventricular chamber dimension is normal. Right ventricular systolic function is normal and with normal TAPSE 2.0 cm. Left Atria Left atrial chamber dimension is normal. Right Atria Right atrial chamber dimension is normal. Atrial Septum Intact interatrial septum visualized by 2D and agitated saline imaging. Agitated saline injection with and without valsalva maneuver opacified right side cardiac chambers without shunt to left side cardiac chambers. Aortic Valve The aortic valve is trileaflet. There is no aortic valve stenosis. There is no aortic valve regurgitation. Pulmonic Valve There is trace pulmonic regurgitation. Mitral Valve There is no mitral valve stenosis. There is no mitral valve regurgitation. Tricuspid Valve There is no tricuspid valve regurgitation. No pulmonary hypertension, estimated pulmonary arterial systolic pressure is 19 mmHg. Pericardium/Pleural There is no pericardial effusion. Inferior Vena Cava Normal inferior vena cava with >50% collapse upon inspiration consistent with normal right atrial pressure, 5 mmHg. Aorta The aortic root size at the sinus of Valsalva is not well visualized. Left Ventricular Outflow Tract Name Value Normal LVOT 2D LVOT Diameter 2.0 cm LVOT Doppler LVOT Peak Velocity 106 cm/s LVOT Peak Gradient 4 mmHg LVOT Mean Gradient 2 mmHg LVOT VTI 16 cm LVOT VTI/AV VTI Ratio 1.0 LVOT Stroke Volume 54 ml LVOT CO 3.5 l/min LVOT CI 1.5 l/min/m2 Pulmonic Valve Name Value Normal RVOT Doppler RVOT Peak Velocity 78 cm/s RVOT Peak Gradient 2 mmHg PV Doppler PV Peak Velocity 124 cm/s PV Peak Gradient 6 mmHg Mitral Valve Name Value Normal MV Diastolic Function MV E Peak Velocity 59 cm/s MV A Peak Velocity 59 cm/s MV E/A 1.0 MV Decel Time (PW) 214 ms MV Annular TDI MV E/e' (Septal) 7.8 MV E/e' (Lateral) 5.7 MV E/e' (Average) 6.8 Tricuspid Valve Name Value Normal TV Regurgitation Doppler TR Peak Velocity 188 cm/s TR Peak Gradient 14 mmHg Estimated PAP/RSVP RA Pressure 5 mmHg <=5 PA Systolic Pressure 19 mmHg <36 RV Systolic Pressure 19 mmHg <36 TV Annular TDI TV Lateral Cass s' Velocity 10.6 cm/s >=9.5 Aorta Name Value Normal Ascending Aorta Ao Root Diameter (MM) 3.6 cm Ao Root Diam Index (MM) 1.6 cm/m2 Aortic Valve Name Value Normal AV Doppler AV Peak Velocity 106 cm/s AV Peak Gradient 4 mmHg AV Mean Gradient 2 mmHg AV VTI 16 cm AV Area (Cont Eq VTI) 3.3 cm2 >=3.0 AV Area (Cont Eq Silvestre) 3.3 cm2 AV DI (Silvestre) 1.00 AV Regurgitation 2D LVOT Area 3.3 cm2 Ventricles Name Value Normal LV Dimensions 2D/MM IVS Diastolic Thickness (2D) 1.2 cm 0.6-1.0 LVID Diastole (2D) 4.3 cm 4.2-5.8 LVIW Diastolic Thickness (2D) 1.2 cm 0.6-1.0 LVID Systole (2D) 2.8 cm 2.5-4.0 LVOT Diameter 2.0 cm LV Mass (2D Cubed) 186.42 g 88.00-224.00 LV Mass Index (2D Cubed) 82 g/m2 49-115 Relative Wall Thickness (2D) 0.55 <=0.42 LV Fractional Shortening/Ejection Fraction 2D/MM LV Fractional Shortening (2D) 35 % 25-43 LV EF (2D Teichholz) 65 % LV Diastolic Volume (4C MOD) 92 ml LV EF (4C MOD) 63 % LV Diastolic Volume (2C MOD) 90 ml LV EF (2C MOD) 60 % LV Diastolic Volume (BP MOD) 92 ml 62-150 LV Diastolic Volume Index (BP MOD) 41 ml/m2 34-74 LV Systolic Volume (BP MOD) 36 ml 21-61 LV Systolic Volume Index (BP MOD) 16 ml/m2 11-31 LV EF (BP MOD) 61 % 52-72 LV Diastolic Length (4C) 8.6 cm LV Systolic Length (4C) 6.9 cm LV Stroke Volume (4C MOD) 58 ml Atria Name Value Normal LA Dimensions LA Dimension (MM) 3.9 cm 3.0-4.0 LA Volume (4C A-L) 47 ml LA Volume (BP A-L) 52 ml RA Dimensions RA Area (4C) 11.8 cm2 <=18.0 Report Signatures
[2025-03-07] MEDS: ATORVASTATIN 40 MG TABLET 80 MG PO (07:56)
[2025-03-07] MEDS: ASPIRIN 325 MG TABLET PO (07:57)
--- NOTE | 2025-03-07 08:13 | PM.IMPN ---
Progress Note: A&P Assessment and Plan (1) TIA (transient ischemic attack): Code(s): G45.9 - Transient cerebral ischemic attack, unspecified Status: Acute Assessment and Plan: After dinner on 03/05/2025 felt as if he was drawn, could not type, had slurred speech. Was found to have high blood pressure. Sent to [place] ER for further evaluation. Laboratory workup largely unremarkable. Continue full-dose aspirin 325 mg p.o. q.day. 80 mg atorvastatin q.day. A1C 5.1% on 03/06/2025 Lipid panel: Triglycerides 55, cholesterol 241, LDL 115, HDL 95 Echo pending Brain MRI: Acute infarct in left basal ganglia Outpt f/u w/ [facility] neurology, Clinic # [phone] Plan Full code. SCDs. Subjective Date/time seen: 03/07/25 08:13 Interval history: 54-year-old male presents to [facility] ER on 03/06/2025 with complaint of confusion. He for sought evaluation with his PCP Dr. Hazel as he felt out of sorts. 03/07/2025 Patient is sitting comfortably in bed at time of examination. Brain MRI shows acute infarct in the left basal ganglia. Echocardiogram still pending at this time, however likely will not be obtained before tomorrow. Patient given follow-up instructions with the [facility] Neurology office, likely can DC tomorrow after echo. No other complaints concerns at this time, neuro exam benign. Review of Systems Review of Systems: All systems reviewed & are unremarkable except as noted in HPI and below Constitutional: Constitutional: Reports as per HPI Exam Const: General: comfortable and no acute distress HENMT: Mouth: Yes moist mucous membranes Eyes: Pupils: Equal, round and reactive pupils present Neck: Neck: supple Resp: Effort & Inspection: normal respiratory effort Auscultation: clear to auscultation bilaterally Cardio: Rate: regular rate Rhythm: regular rhythm : General: Yes bladder normal to palpation Neuro: General: deep tendon reflexes 2+ bilaterally Cranial nerves: Yes Equal, round and reactive pupils present Speech: normal speech Motor exam (neuro): 5/5 motor strength present throughout Sensory Exam: normal sensation Extrem: General: no edema Objective Data Vital Signs Vital Signs: Vital Signs - 24 hr 03/06/25 15:48 03/06/25 19:47 03/06/25 19:57 Temperature Pulse Rate 70 67 69 Respiratory Rate 20 16 17 Blood Pressure 161/92 H 181/98 H Pulse Oximetry 100 100 100 Oxygen Delivery Room Air 03/06/25 20:00 03/06/25 20:01 03/06/25 20:15 Temperature Pulse Rate 70 65 66 Respiratory Rate 21 H 17 16 Blood Pressure 172/100 H Pulse Oximetry 100 100 98 Oxygen Delivery 03/06/25 20:16 03/06/25 20:30 03/06/25 20:31 Temperature Pulse Rate 63 68 65 Respiratory Rate 15 19 15 Blood Pressure 145/99 H 159/98 H Pulse Oximetry 99 100 98 Oxygen Delivery 03/06/25 20:45 03/06/25 20:46 03/06/25 21:00 Temperature Pulse Rate 65 63 67 Respiratory Rate 16 15 16 Blood Pressure 153/94 H Pulse Oximetry 98 98 98 Oxygen Delivery 03/06/25 21:01 03/06/25 21:15 03/06/25 21:32 Temperature Pulse Rate 66 63 Respiratory Rate 18 16 Blood Pressure 134/101 H Pulse Oximetry 98 100 Oxygen Delivery 03/06/25 21:34 03/06/25 21:45 03/06/25 22:00 Temperature Pulse Rate 64 69 71 Respiratory Rate 14 17 15 Blood Pressure 166/95 H Pulse Oximetry 100 100 96 Oxygen Delivery 03/06/25 22:01 03/06/25 22:15 03/06/25 22:16 Temperature Pulse Rate 72 67 74 Respiratory Rate 17 17 19 Blood Pressure 147/96 H 147/92 H Pulse Oximetry 97 96 97 Oxygen Delivery 03/06/25 22:30 03/06/25 22:31 03/06/25 22:45 Temperature Pulse Rate 59 L 57 L 60 Respiratory Rate 16 14 13 Blood Pressure 144/97 H Pulse Oximetry 96 96 97 Oxygen Delivery 03/06/25 23:00 03/06/25 23:01 03/06/25 23:15 Temperature Pulse Rate 64 68 71 Respiratory Rate 16 17 17 Blood Pressure 157/102 H Pulse Oximetry 100 100 100 Oxygen Delivery 03/06/25 23:30 03/06/25 23:45 03/07/25 00:00 Temperature Pulse Rate 64 73 67 Respiratory Rate 17 14 15 Blood Pressure Pulse Oximetry 100 100 97 Oxygen Delivery 03/07/25 00:15 03/07/25 00:30 03/07/25 00:45 Temperature Pulse Rate 59 L 57 L 58 L Respiratory Rate 13 14 16 Blood Pressure Pulse Oximetry 97 97 99 Oxygen Delivery 03/07/25 01:00 03/07/25 01:15 03/07/25 01:30 Temperature Pulse Rate 62 60 62 Respiratory Rate 18 18 15 Blood Pressure Pulse Oximetry 99 100 98 Oxygen Delivery 03/07/25 02:58 03/07/25 06:00 Temperature 98.1 F 98.2 F Pulse Rate 60 65 Respiratory Rate 18 20 Blood Pressure 147/102 H 119/75 Pulse Oximetry 100 100 Oxygen Delivery Intake/Output Intake/Output: Intake & Output 03/04/25 03/05/25 03/06/25 03/07/25 23:59 23:59 23:59 23:59 Intake Total 200 Balance 200 Meds/Results Medications: Active Medications Generic Name Dose Route Start Last Admin Trade Name Freq PRN Reason Stop Dose Admin Acetaminophen 650 mg 03/07/25 00:28 Acetaminophen 325 Mg Tablet PO Q4H PRN Mild Pain (1-3) or Fever Aspirin 325 mg 03/07/25 08:00 03/07/25 07:57 Aspirin 325 Mg Tablet PO 325 mg DAILY@0800 ROLAND Administration Atorvastatin Calcium 80 mg 03/07/25 09:00 03/07/25 07:56 Atorvastatin 40 Mg Tablet PO 80 mg DAILY ROLAND Administration Ondansetron HCl 4 mg 03/07/25 00:28 Ondansetron Inj 4 Mg/2 Ml Vial IV PUSH Q4H PRN Nausea Perflutren Lipid Microsphere 0 ml 03/07/25 00:28 Perflutren Lipid Microspheres 1.5 Ml Vial Diluted To 10 Ml Total Volume IV PUSH 03/10/25 00:29 ONCE PRN adequate visualization Protocol Radiology Results: ITS Impressions Head CT 03/06/25 16:41 IMPRESSION: 1. Normal head CT. Head/Neck CTA 03/06/25 21:43 IMPRESSION: 1. Normal CTA head and neck. Percent stenosis per NASCET criteria is 0%. Labs Labs: Laboratory Results - last 24 hr 03/06/25 03/06/25 03/06/25 15:51 15:57 17:10 WBC 8.6 RBC 5.02 Hgb 15.1 Hct 46.3 MCV 92.2 MCH 30.1 MCHC 32.6 RDW 12.8 Plt Count 211 MPV 11.1 H Immature Gran % (Auto) 0.2 Neut % (Auto) 73.1 Lymph % (Auto) 19.4 [place] % (Auto) 6.7 Eos % (Auto) 0.3 Baso % (Auto) 0.3 Lymph # (Auto) 1.67 [place] # (Auto) 0.6 Eos # (Auto) 0.0 Baso # (Auto) 0.0 Abs Immat Gran (auto) 0.02 Absolute Neuts (auto) 6.3 Absolute Nucleated RBC 0.000 Nucleated RBC % 0.0 PT INR APTT Sodium Potassium Chloride Carbon Dioxide Anion Gap BUN Creatinine Estim Creat Clear Calc Estimated GFR Glucose POC Capillary Glucose 88 Hemoglobin A1c 5.1 Calcium Total Bilirubin AST ALT Alkaline Phosphatase Troponin I Total Protein Albumin Triglycerides Cholesterol LDL Cholesterol Direct HDL Direct Urine Color Yellow Urine Appearance Clear Urine pH 5.0 Ur Specific [place] 1.024 Urine Protein Trace Urine Glucose (UA) Negative Urine Ketones 3+ H Ur Blood (Man) Negative Urine Nitrate Negative Urine Bilirubin Negative Urine Urobilinogen 1.0 Leukocyte Esterase Rfl Negative Urine RBC 0-2 Urine WBC 0-5 Ur Squamous Epith Cells None seen Urine Bacteria None seen Urine Casts 0-2 Urine Opiates Screen Negative Urine Methadone Screen Negative Ur Barbiturates Screen Negative Ur Phencyclidine Scrn Negative Ur Amphetamine Screen Negative U Benzodiazepines Scrn Negative Urine Cocaine Screen Negative U Cannabinoids Screen Negative Ethyl Alcohol 03/06/25 17:11 WBC RBC Hgb Hct MCV MCH MCHC RDW Plt Count MPV Immature Gran % (Auto) Neut % (Auto) Lymph % (Auto) [place] % (Auto) Eos % (Auto) Baso % (Auto) Lymph # (Auto) [place] # (Auto) Eos # (Auto) Baso # (Auto) Abs Immat Gran (auto) Absolute Neuts (auto) Absolute Nucleated RBC Nucleated RBC % PT 13.4 INR 1.0 APTT 26.9 Sodium 139 Potassium 3.9 Chloride 104 Carbon Dioxide 25 Anion Gap 10 BUN 15 Creatinine 0.94 Estim Creat Clear Calc 96 Estimated GFR > 60 Glucose 96 POC Capillary Glucose Hemoglobin A1c Calcium 9.8 Total Bilirubin 0.9 AST 30 ALT 20 Alkaline Phosphatase 67 Troponin I < 0.012 Total Protein 8.0 Albumin 4.8 Triglycerides 55 Cholesterol 241 H LDL Cholesterol Direct 115 HDL Direct 95 Urine Color Urine Appearance Urine pH Ur Specific [place] Urine Protein Urine Glucose (UA) Urine Ketones Ur Blood (Man) Urine Nitrate Urine Bilirubin Urine Urobilinogen Leukocyte Esterase Rfl Urine RBC Urine WBC Ur Squamous Epith Cells Urine Bacteria Urine Casts Urine Opiates Screen Urine Methadone Screen Ur Barbiturates Screen Ur Phencyclidine Scrn Ur Amphetamine Screen U Benzodiazepines Scrn Urine Cocaine Screen U Cannabinoids Screen Ethyl Alcohol < 10 Quality VTE Prophylaxis VTE prophylaxis: mechanical ordered
--- NOTE | 2025-03-07 16:31 | P.DS_ITS ---
DS: Admitting Diagnosis Discharge Date 03/07/2025 Admitting Diagnosis TIA DS: Discharge Diagnosis Discharge Diagnosis (1) Stroke: Code(s): I63.9 - Cerebral infarction, unspecified Status: Acute DS: Summary Hospital Course Reason for hospitalization: Confusion Hospital Course: 54-year-old male presents to [facility] ER on 03/06/2025 with complaint of confusion. He for sought evaluation with his PCP Dr. Hazel as he felt out of sorts. After dinner on 03/05/2025 felt as if he was drawn, could not type, had slurred speech. Was found to have high blood pressure. Sent to [place] ER for further evaluation. Laboratory workup largely unremarkable. Pending lipid panel. Negative UA. Negative urine drug screen. CT head and CTA head and neck negative. On repeat evaluation in the ER the patient reported no symptoms. His participation in the exam was limited as he only wanted to sleep. However reported he was feeling much better. As detailed and ER physician's note neurology Dr. Ledesma at [facility] decline for patient to be transferred however gave detailed recommendations on plan of care. Brain MRI was ordered and showed an acute infarct of the left basal ganglia. Head/Neck CTA was negative for acute findings. Echocardiogram was ordered as well and showed normal LV chamber dimension, EF 60-65%, grade 2 diastolic dysfunction, no pulm hypertension, trace pulm regurg. Pt otherwise has stable vital signs and has a benign neurological exam. As he is >34 hours of symptoms resolving, he can be discharged home on dual antiplatelet therapy with Plavix and Aspirin with close followup in the outpatient setting with Neurology. Pt was given the information for [facility] neurology and will also followup with his PCP. Plan for discharge home at this time. Status at Discharge Functional status at discharge: independent ambulation Overall status at discharge: patient is back to baseline Time Spent with Patient Time attestation: Total time spent providing and/or coordinating discharge services:30 Exam Const: General: comfortable and no acute distress HENMT: Mouth: Yes moist mucous membranes Eyes: Pupils: Equal, round and reactive pupils present Neck: Neck: supple Resp: Effort & Inspection: normal respiratory effort Auscultation: clear to auscultation bilaterally Cardio: Rate: regular rate Rhythm: regular rhythm GI: GI Palp: Yes Soft to palpation Auscultation: normal bowel sounds : General: Yes bladder normal to palpation Skin: General skin exam: normal color and no rashes or lesions noted Wounds: no wounds Neuro: General: gait normal and deep tendon reflexes 2+ bilaterally Cranial nerves: Yes Equal, round and reactive pupils present Speech: normal speech Motor exam (neuro): 5/5 motor strength present throughout Sensory Exam: normal sensation Extrem: General: no edema Psych: Mental Status: mental status grossly normal Affect: normal affect DS: Data Data Completed and Pending Labs on day of discharge: Labs from last 24 hours 03/06/25 03/06/25 03/06/25 17:11 17:10 15:57 WBC 8.6 RBC 5.02 Hgb 15.1 Hct 46.3 MCV 92.2 MCH 30.1 MCHC 32.6 RDW 12.8 Plt Count 211 MPV 11.1 H Immature Gran % (Auto) 0.2 Neut % (Auto) 73.1 Lymph % (Auto) 19.4 [place] % (Auto) 6.7 Eos % (Auto) 0.3 Baso % (Auto) 0.3 Lymph # (Auto) 1.67 [place] # (Auto) 0.6 Eos # (Auto) 0.0 Baso # (Auto) 0.0 Abs Immat Gran (auto) 0.02 Absolute Neuts (auto) 6.3 Absolute Nucleated RBC 0.000 Nucleated RBC % 0.0 PT 13.4 INR 1.0 APTT 26.9 Sodium 139 Potassium 3.9 Chloride 104 Carbon Dioxide 25 Anion Gap 10 BUN 15 Creatinine 0.94 Estim Creat Clear Calc 96 Estimated GFR > 60 Glucose 96 POC Capillary Glucose Hemoglobin A1c 5.1 Calcium 9.8 Total Bilirubin 0.9 AST 30 ALT 20 Alkaline Phosphatase 67 Troponin I < 0.012 Total Protein 8.0 Albumin 4.8 Triglycerides 55 Cholesterol 241 H LDL Cholesterol Direct 115 HDL Direct 95 Urine Opiates Screen Negative Urine Methadone Screen Negative Ur Barbiturates Screen Negative Ur Phencyclidine Scrn Negative Ur Amphetamine Screen Negative U Benzodiazepines Scrn Negative Urine Cocaine Screen Negative U Cannabinoids Screen Negative Ethyl Alcohol < 10 03/06/25 15:51 WBC RBC Hgb Hct MCV MCH MCHC RDW Plt Count MPV Immature Gran % (Auto) Neut % (Auto) Lymph % (Auto) [place] % (Auto) Eos % (Auto) Baso % (Auto) Lymph # (Auto) [place] # (Auto) Eos # (Auto) Baso # (Auto) Abs Immat Gran (auto) Absolute Neuts (auto) Absolute Nucleated RBC Nucleated RBC % PT INR APTT Sodium Potassium Chloride Carbon Dioxide Anion Gap BUN Creatinine Estim Creat Clear Calc Estimated GFR Glucose POC Capillary Glucose 88 Hemoglobin A1c Calcium Total Bilirubin AST ALT Alkaline Phosphatase Troponin I Total Protein Albumin Triglycerides Cholesterol LDL Cholesterol Direct HDL Direct Urine Opiates Screen Urine Methadone Screen Ur Barbiturates Screen Ur Phencyclidine Scrn Ur Amphetamine Screen U Benzodiazepines Scrn Urine Cocaine Screen U Cannabinoids Screen Ethyl Alcohol Discharge Plan Discharge Attending physician on discharge: Rizwan Odonnell Consulting providers: Alberto Rivera Discharging Clinician: Alberto Rivera Anticipated Discharge Date/Time: 03/07/25 16:28 Patient Disposition: Home Activity: as tolerated Diet: as tolerated Discharge Instructions: Take all medications as prescribed even if feeling better Eat well balanced meals and stay hydrated Strict bleeding precautions since you are being started on Plavix including shaving with an electric razor, holding pressure for greater than 20 minutes for injury, protection of had with any falls, etc. [facility] Neurology outpatient follow up. Clinic # [phone] Change positions slowly taking a break in between each position change If you should experience any chest pain, shortness of breath, temps >100.4 or any other worrisome symptoms please follow up with your PCP come back to the hospital Follow up with your primary in 1 weeks. Discuss with your primary care physician regarding continuing your Atorvastatin, Plavix and Aspirin. It has been a pleasure taking care of you thank you for using our services Patient Instructions: Antibiotic Form Patient Language: Yoruba Stand Alone Forms: General Discharge Information Follow-up/Referrals: Bijan Hazel MD [Primary Care Provider] - Discharge Medications: New aspirin 81 mg tablet 81 mg PO DAILY Qty: 30 0RF atorvastatin [Lipitor] 80 mg tablet 80 mg PO DAILY Qty: 30 0RF clopidogrel [Plavix] 75 mg tablet 75 mg PO DAILY Qty: 30 0RF No Action No Home Medications Date of admission: 03/07/25 00:28 Primary Care Provider: Bijan Hazel Admitting Provider: Laurel Albright Attending physician on admission: Laurel Albright Condition: Stable Quality VTE Prophylaxis VTE prophylaxis: mechanical ordered
== END 2025-03-07 16:45 | disposition home or self-care (01) ==
LOC: ANHED 20:09 → ANH3MEDSUR 03-07 03:53
PROVIDERS: Physician Assistant; Admitting Provider General Practice; Emergency Provider Student in an Organized Health Care Education/Training Program; PCP Family Medicine; Visit Provider Internal Medicine
DX: I63.9 Cerebral infarction, unspecified (principal); R47.81 Slurred speech
CPT/HCPCS: 36415; 70450; 70496; 70498; 70553; 80053; 80061; 80307; 81001; 82077; 82948; 83036; 84484; 85025; 85610; 85730; 93005; 93306; 96375; 99285; A9270; A9577; G0378; Q9967

== ENCOUNTER 2025-03-26 13:13 | Outpatient (CLI) | payer BC, SELFPAY ==
--- NOTE | ~2025-03-26 | US_ITS ---
EXAMINATION: US carotid duplex BI DATE: 03/26/2025 13:45 INDICATION: Basal ganglia infarctions. Speech-language deficit. TECHNIQUE: Grayscale, color Doppler, and pulsed Doppler images of the cervical carotid arteries were obtained. The degree of vessel stenosis is placed in one of the following categories: normal, <50%, 5 0-69%, >=70% but less than near-occlusion, near-occlusion, or total occlusion. Note that percent sten osis relative to normal distal artery lumen diameter is indirectly measured from velocity measurement s as described by Ross, et al. Radiology 2003; [id number]:[id number]. COMPARISON: None. FINDINGS: RIGHT: The right common carotid artery (CCA) peak systolic velocity (PSV) is 102 cm/s. The right internal ca rotid artery (ICA) PSV is 81 cm/s. The right ICA end-diastolic velocity (EDV) is 25 cm/s. The right I CA/CCA PSV ratio is 0.8. Grayscale and color Doppler images yield an estimate of <50% diameter reduct ion from plaque in the ICA. The external carotid artery (ECA) PSV is 92 cm/s. There is antegrade flow in the right vertebral artery. LEFT: The left CCA PSV is 97 cm/s. The left ICA PSV is 71 cm/s. The left ICA EDV is 30 cm/s. The left ICA/C CA PSV ratio is 0.7. Grayscale and color Doppler images yield an estimate of <50% diameter reduction from plaque in the ICA. The ECA PSV is 88 cm/s. There is antegrade flow in the left vertebral artery. IMPRESSION: 1. <50% stenosis in the right internal carotid artery. 2. <50% stenosis in the left internal carotid artery. Reviewed, dictated and finalized at location A.
== END 2025-03-26 13:14 | disposition home or self-care (01) ==
LOC: MICIMG 13:14
PROVIDERS: PCP Family Medicine; Visit Provider Family Medicine
DX: I63.81 Other cerebral infarction due to occlusion or stenosis of small artery (principal); I65.23 Occlusion and stenosis of bilateral carotid arteries
CPT/HCPCS: 93880